=== PATIENT | male | born 1945 | race Caucasian/White ===

== ENCOUNTER 2019-02-09 10:27 | Emergency (ER) | payer MEDICARE, BC ==
[2019-02-09 11:27] VITALS: BP 148/88
--- NOTE | 2019-02-09 12:10 | ED ---
Throat Pain/Nasal Congestion - HPI Summary HPI Summary: Patient is 73-year-old male presenting to the ED with right eye complaint. He states the past day he has developed some blurriness to the right eye with tearing and pain to the lower lid. He is also endorsing some swelling just below the lid with some erythema. Denies any fevers, sweats, chills. History of Lasix surgery 12 years ago. He states he recently had his prescription changed for a stronger prescription of his classes. He states usually his left eye is his dominant eye, but over the last 2 days, he has had improvement of vision to his left eye and worsening vision to his right eye. He is endorsing tearing and waking up with crusting to the lids. He denies any pain directly over the cornea and denies any pressure. He denies seeing any black spots or partial blindness/vision loss aside from blurry vision. - History of Current Complaint Chief Complaint: EDEyeProblem Time Seen by Provider: 02/09/19 10:50 Hx Obtained From: Patient Onset/Duration: Sudden Onset Severity: Moderate Associated Signs And Symptoms: Positive: Negative - Epiglottits Risk Factors Epiglottis Risk Factors: Negative PMH/Surg Hx/FS Hx/Imm Hx Previously Healthy: Yes - Immunization History Hx Pertussis Vaccination: No Immunizations Up to Date: Yes Infectious Disease History: No Infectious Disease History: Denies: Traveled Outside the [place] in Last 30 Days - Social History Occupation: Unemployed Lives: With Family Alcohol Use: Rare Hx Substance Use: No Substance Use Type: Reports: None Hx Tobacco Use: No Smoking Status (MU): Never Smoked Tobacco Review of Systems Constitutional: Negative Negative: Fever, Chills, Fatigue, Skin Diaphoresis Positive: Blurred Vision, Drainage, Erythema, Other - stye to the lower lid Negative: Palpitations, Chest Pain Negative: Shortness Of Breath, Cough Genitourinary: Negative Positive: no symptoms reported, see HPI Negative: Arthralgia, Myalgia Skin: Negative All Other Systems Reviewed And Are Negative: Yes Physical Exam Triage Information Reviewed: Yes Vital Signs On Initial Exam: Initial Vitals Temp Pulse Resp BP Pulse Ox 97.2 F 66 19 164/82 97 02/09/19 10:38 02/09/19 10:38 02/09/19 10:38 02/09/19 10:38 02/09/19 10:38 Vital Signs Reviewed: Yes Appearance: Positive: Well-Appearing, Well-Nourished Skin: Positive: Warm, Skin Color Reflects Adequate Perfusion Head/Face: Positive: Normal Head/Face Inspection Eyes: Positive: Conjunctiva Inflammed, Other: - stye to right lower lid (inner) Neck: Positive: Supple, No Lymphadenopathy Respiratory/Lung Sounds: Positive: Clear to Auscultation, Breath Sounds Present Cardiovascular: Positive: Pulses are Symmetrical in both Upper and Lower Extremities Musculoskeletal: Positive: Strength/ROM Intact Neurological: Positive: Speech Normal Psychiatric: Positive: Affect/Mood Appropriate AVPU Assessment: Alert Diagnostics - Vital Signs Vital Signs Temp Pulse Resp BP Pulse Ox 02/09/19 11:25 97.3 F 67 16 148/88 96 02/09/19 10:38 97.2 F 66 19 164/82 97 - Laboratory Lab Statement: Any lab studies that have been ordered have been reviewed, and results considered in the medical decision making process. EENT Course/Dx - Course Course Of Treatment: On physical examination, there is erythema throughout the cornea with tearing representing extent of this. There is also a small stye in the right lower inner lid of the eye and some redness and swelling below the lower lid that appears to be a fluid collection without cellulitis. No evidence of orbital cellulitis. No evidence of entrapment. Patient states he is only having blurry vision with faraway vision and denies any blurry vision up close. Discussed treatment options with the patient. Patient is comfortable with going home and following up with ophthalmology. He is given Keflex, encouraged to use warm compresses to the eye as well as polymyxin drops to the eye for conjunctivitis. He denies any concerns or complaints at this time. He understands to return if he develops any pressure, pain or worsening blurry vision. - Diagnoses Provider Diagnoses: Conjunctivitis, Stye Discharge - Sign-Out/Discharge Documenting (check all that apply): Patient Departure Patient Received Moderate/Deep Sedation with Procedure: No - Discharge Plan Condition: Stable Disposition: HOME Prescriptions: Cephalexin CAP* [Keflex CAP*] 500 mg PO TID #15 cap MDD 3 Polymyx/Trimethoprim OPTH* [Polytrim OPHTH*] 1 drop RIGHT EYE Q3H #1 btl Patient Education Materials: Stye (ED), Orbital Cellulitis (ED), Conjunctivitis (ED) Referrals: Cal Jacobs MD [Medical Doctor] - No Primary Care Phys,NOPCP [Primary Care Provider] - Shakeel Leonard MD [Medical Doctor] - Jerome Spears MD [Medical Doctor] - Additional Instructions: Given you information on stye and conjunctivitis as well as orbital cellulitis As discussed, he did not have an orbital cellulitis, however if you develop worsening redness, swelling or fevers, he may have an orbital cellulitis and need to be seen in the ED immediately Please follow-up with Dr. Spears, Dr. Jacobs, or Dr. Leonard I have given you referrals If you develop any worsening or changing symptoms, return to the ED immediately - Billing Disposition and Condition Condition: STABLE Disposition: Home
== END 2019-02-09 11:25 | disposition home or self-care (01) ==
LOC: ED 10:27
DX: H10.9 Unspecified conjunctivitis (principal); H00.012 Hordeolum externum right lower eyelid
CPT/HCPCS: 99282

== ENCOUNTER 2019-02-19 07:41 | Emergency (ER) | payer MEDICARE, BC ==
--- NOTE | 2019-02-19 08:17 | ED ---
Throat Pain/Nasal Congestion - HPI Summary HPI Summary: Pt. is a 73 y.o male who presents to the ER for a bump to right lower eye that started yesterday. Pt. states he was seen in the ED about 1.5 weeks ago for similar sxs and dx with a stye. Pt. states his sxs resolved until he woke up today with a painful bump to right lower lid again. Pt. states he did f.u with optho. after dc last week. Pt. denies fever, chills, vision changes. Sxs are mild in severity. Touching affected area makes sxs worse. Rest makes sxs better. Does not wear contact lenses. - History of Current Complaint Chief Complaint: EDEyeProblem Time Seen by Provider: 02/19/19 07:51 Hx Obtained From: Patient - Allergies/Home Medications Allergies/Adverse Reactions: Allergies Allergy/AdvReac Type Severity Reaction Status Date / Time No Known Allergies Allergy Verified 02/19/19 07:47 Home Medications: Home Medications Ezetimibe 1 tab PO DAILY 02/19/19 [History Confirmed 02/19/19] Mesalamine [Asacol Hd] 1 tab PO DAILY 02/19/19 [History Confirmed 02/19/19] Metoprolol Succinate 25 mg PO DAILY 02/19/19 [History Confirmed 02/19/19] Rosuvastatin Calcium 1 tab PO DAILY 02/19/19 [History Confirmed 02/19/19] PMH/Surg Hx/FS Hx/Imm Hx Previously Healthy: Yes Infectious Disease History: No Infectious Disease History: Denies: Traveled Outside the [place] in Last 30 Days - Family History Known Family History: Positive: Non-Contributory - Social History Occupation: Retired Lives: With Family Alcohol Use: Daily Alcohol Amount: one drink a day Hx Substance Use: No Substance Use Type: Reports: None Hx Tobacco Use: No Smoking Status (MU): Former Smoker Review of Systems Constitutional: Negative Negative: Fever, Chills Positive: Other - painful bump to right lower eyelid ENT: Negative Negative: Sore Throat, Ear Ache, Nasal Discharge Respiratory: Negative Negative: Cough Neurological: Negative Negative: Headache All Other Systems Reviewed And Are Negative: Yes Physical Exam Triage Information Reviewed: Yes Vital Signs On Initial Exam: Initial Vitals Temp Pulse Resp BP Pulse Ox 96.9 F 63 14 159/98 98 02/19/19 07:44 04/25/19 07:44 02/19/19 07:44 02/19/19 07:44 02/19/19 07:44 Vital Signs Reviewed: Yes Appearance: Positive: Well-Appearing - Pt. sitting on bed in NAD> Skin: Positive: Warm, Dry Head/Face: Positive: Normal Head/Face Inspection Eyes: Positive: Normal, EOMI, JEWELS, Other: - left eye unremarkable. Very small whitish bump noted to right lower eyelid along lashline. Mild yellowish discharge at medial canthus. No surrouding erythema or edema. EOMI without pain. Neck: Positive: Supple Neurological: Positive: Normal, CN Intact II-III Psychiatric: Positive: Affect/Mood Appropriate Diagnostics - Vital Signs Vital Signs Temp Pulse Resp BP Pulse Ox 02/19/19 07:44 96.9 F 63 14 159/98 98 - Laboratory Lab Statement: Any lab studies that have been ordered have been reviewed, and results considered in the medical decision making process. EENT Course/Dx - Course Course Of Treatment: Pt.'s exam consistent with a hordeolum. Will treat with warm compresses and erythromycin ointment. Can f.u with ophtho. again. Advised to avoid rubbing and touching eye. To return to ER if sxs change or worsen. Pt. understands and agrees with plan. - Differential Diagnoses Differential Diagnoses: Cellulitis, Conjunctivitis, Foreign Body - Diagnoses Provider Diagnoses: Hordeolum Discharge - Sign-Out/Discharge Documenting (check all that apply): Patient Departure Patient Received Moderate/Deep Sedation with Procedure: No - Discharge Plan Condition: Good Disposition: HOME Prescriptions: Erythromycin OPTH OINT* [Erythromycin 0.5% OPTH OINT*] 1 applic RIGHT EYE TID # 1 ophth.oint Patient Education Materials: Conrad (ED) Referrals: Shakeel Leonard MD [Medical Doctor] - Additional Instructions: Follow up with eye doctor if symptoms persist Use antibiotic ointment as directed Apply warm compresses at least 3x a day Avoid touching, rubbing, and squeezing area Return to ER for increased pain, redness, swelling, fever, pain moving eye - Billing Disposition and Condition Condition: GOOD Disposition: Home
[2019-02-19 08:24] VITALS: BP 171/97
--- OUTSIDE RECORDS SUMMARY | 2019-02-19 08:33 | XMS REPORT | Continuity of Care Document ---
:1945 External Reference #:[id number] Author Name Chiki Mcgee, OD Address [address] [place] [address] Care Team Providers Name Role Phone Chiki Mcgee, OD Care Team Information National [employer] Unavailable Payers Date Identification Numbers Payment Provider Subscriber Policy Number: [id number] [place] Harini Harris PayID: [id number] [address] [place] [address] Policy Number: [id number] Federal Employment [place] Harini Harris PayID: [id number] [address] [address] [place] [address] Advance Directives Description No Information Available Problems Description No Information Family History Date Family Member(s) Observation Comments General Glasses General No Current Problems Father No Current Problems Mother No Current Problems Social History Type Date Description Comments Sex Unknown ETOH Use Occasionally consumes alcohol Tobacco Use Start: Unknown Patient has never smoked Smoking Status Reviewed: 02/13/19 Patient has never smoked Allergies, Adverse Reactions, Alerts Description No Known Drug Allergies Medications Active Medications SIG Qnty Indications Ordering Provider Date Cephalexin Take One Capsule Unknown 500mg Capsules By Mouth Three Times A Day For 5 Days Polymyxin B Unknown Sulfate/Trimethoprim Sulfate 05914-4.1Unit/ML-% Solution Metoprolol Succinate Unknown ER 25mg Tablets ER 24HR Rosuvastatin Calcium Unknown 40mg Tablets Ezetimibe Unknown 10mg Tablets Immunizations Description No Information Available Vital Signs Date Vital Result Comment 02/13/2019 3:50pm Intraocular Pressure Right Eye 14 mmHg Intraocular Pressure Left Eye 14 mmHg Results Description No Information Available Procedures Description No Information Available Encounters Type Date Location Provider Dx Diagnosis Office Visit 02/13/2019 Main Office Chiki Mcgee, OD H25.13 Age-related nuclear 3:30p cataract, bilateral 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
== END 2019-02-19 08:23 | disposition home or self-care (01) ==
LOC: ED 07:41
DX: H00.012 Hordeolum externum right lower eyelid (principal); Z87.891 Personal history of nicotine dependence
CPT/HCPCS: 99282